=== PATIENT | male | born 1955 | race Caucasian/White ===

== ENCOUNTER → 2020-11-15 | Outpatient (CLI) | payer OTHER ==
[~2020-11-15] MED LIST: LIPITOR20 MG PO; NORCO 325 MG-7.1 TAB PO; PRINIVIL10 MG PO; VIIBRYD40 MG PO; ZOCOR 10MG10 MG PO; ZYLOPRIM 300MG300 MG PO
== END ==
LOC: COL.RAD 08:41
DX: K52.89 Other specified noninfective gastroenteritis and colitis (principal); M51.36 Other intervertebral disc degeneration, lumbar region; M43.17 Spondylolisthesis, lumbosacral region; R91.1 Solitary pulmonary nodule; C61 Malignant neoplasm of prostate
CPT/HCPCS: A9503; Q9967